=== PATIENT | female | born 1980 ===

== ENCOUNTER → 2019-01-27 06:00 | Outpatient (CLI) | payer OTHER ==
[~2019-01-27 06:00] MED LIST: AMARYL PO; FORTAMET1000 MG PO; INVOKANA300 MG PO; IRON1TAB4 PO; SYNTHROID75 MCG PO
== END | disposition home or self-care (01) ==
LOC: LAB 06:00 → ADM 07:45 → CIR.AMB 02-02 07:45 → EDSTATUS 03-30 07:45
DX: R87.619 Unspecified abnormal cytological findings in specimens from cervix uteri (principal); Z01.810 Encounter for preprocedural cardiovascular examination; Z01.812 Encounter for preprocedural laboratory examination

== ENCOUNTER 2019-03-01 11:55 | Outpatient (CLI) | payer OTHER | END 2019-03-01 16:29 | disposition home or self-care (01) | LOC: LAB 11:55 | DX: D68.8 Other specified coagulation defects (principal); I10 Essential (primary) hypertension ==

== ENCOUNTER 2019-03-30 08:10 | Day surgery (SDC) | payer OTHER | END 2019-03-30 16:10 | disposition home or self-care (01) | LOC: CIR.AMB 08:10 | DX: N72 Inflammatory disease of cervix uteri (principal) ==